=== PATIENT | male | born 1985 | race African-American/Black ===

== ENCOUNTER 2024-04-13 15:53 | Emergency (ER) | payer SELFPAY ==
--- NOTE | ~2024-04-13 | CT_ITS ---
CLINICAL HISTORY: headache, blurry vision CT head without contrast Comparison: None Findings: No acute intracranial hemorrhage. No midline shift or hydrocephalus. Minimal low densities in the lateral aspect of the left frontal lobe are likely due to prominent sulci. No arterial territorial infarction by CT. Imaged paranasal sinuses and imaged mastoid air cells are well aerated. No acute skull fracture. IMPRESSION: 1. No acute intracranial abnormality by CT. This document has been electronically signed by: Ant Craaballo MD on 04/13/2024 18:57:40
[2024-04-13 16:31] VITALS: BP 144/86; PULSE 97; RESP 20; TEMP 36.4; O2SAT 100; BMI 29.9
--- NOTE | 2024-04-13 16:36 | ED_ITS ---
HPI - General Adult General Chief complaint: General Medical Stated complaint: high bp Time Seen by Provider: 04/13/24 21:24 Source: patient Mode of arrival: ambulatory Limitations: no limitations History of Present Illness ED Provider: HPI narrative: Patient with a history of hypertension does have chronic headaches with light sensitivity mostly on the left side came from [place] likely has history of migraine not taking any medication comes here for similar reasons patient's blood pressure been stable on arrival was 144/86 slight nausea no vomiting no chest pain no shortness a breath Related Data Previous Rx's ?Medication ?Instructions ?Recorded amlodipine 10 mg tablet 10 mg PO DAILY #90 tabs 04/13/24 fshikvcpai-dxurnbimesrzs-ffbiqfsg 1 tab PO Q6H PRN haeadace #20 tabs 04/13/24 50 mg-325 mg-40 mg tablet Allergies Allergy/AdvReac Type Severity Reaction Status Date / Time ciprofloxacin [From Cipro] Allergy Unknown Verified 04/13/24 16:36 morphine Allergy Anaphylaxis Verified 04/13/24 16:50 Sulfa (Sulfonamide Allergy Unknown Verified 04/13/24 16:36 Antibiotics) Review of Systems 2 Review of Systems: Yes all other systems are reviewed and are negative [facility], [facility] Social History Social History Smoked in Last 30 Days: No Use of substances other than those prescribed or required for medical reasons: No Advance Directives: No Advance Directives Information Provided: No Do you have a plan to hurt others: No Plan Physical Exam ED Vital Signs: Vital Signs - 24 hr 04/13/24 20:53 04/13/24 22:08 Temperature 97.9 F 97.9 F Pulse Rate 75 75 Respiratory Rate 16 16 Blood Pressure 127/86 127/86 Pulse Oximetry 99 99 Oxygen Delivery Method Room Air Room Air BMI result Body Mass Index 29.9 Appearance: Alert. Oriented X3. No acute distress. Eyes: no pallor or icterus ENT: Pharynx normal. Oral Mucosa moist no temporal artery tenderness Neck: Normal inspection. Neck supple. CVS: Normal heart rate and rhythm. Pulses normal. Respiratory: No respiratory distress. Equal air entry bilateral, no wheezing/rales/rhonchi Abd: soft, not tender Skin: Skin warm and dry. Normal skin color. Normal skin turgor. Extremities: No lower extremity edema, no calf tenderness Neuro: Oriented X 3. Course Course Course Narrative: RME: 38 yold male with newly diagnosed HTN presents to the ED for HTN, heaaches, and blurry visison. patient states no loss of vision, facial droop, slurred speech, paralysis, or any other concerning symptoms. labs, EKG ordered Medications Administered Discontinued Medications Generic Name Dose Route Start Last Admin Trade Name Freq PRN Reason Stop Dose Admin Acetaminophen/Butalbital/Caffeine 1 tab 04/13/24 21:57 04/13/24 22:01 Butalb/Acetamin/Caff 50/325/40 Tablet PO 04/13/24 21:58 1 tab ONCE ONE Administration Medical Decision Making Medical Decision Making [facility] Narrative: Patient clinically with migraine headache will give a Fioricet advised to continue her amlodipine labs are stable Lab Data [facility] Lab Attestation statement: I reviewed the patient's lab results. 04/13/24 17:00 04/13/24 17:00 Labs: Lab Results 04/13/24 Range/Units 17:00 WBC 8.1 (4.8-10.8) X10*3/uL RBC 5.82 H (4.60-5.80) X10*6/uL Hgb 14.6 (14.0-18.0) g/dl Hct 40.0 L (42.0-52.0) % MCV 68.7 L (80.0-98.0) fL MCH 25.1 L (27.0-33.0) pg MCHC 36.5 H (31.0-36.0) g/dl RDW 22.5 H (11.0-16.0) % Plt Count 135 L (160-400) X10*3/uL MPV Not Reportable Immature Gran % (Auto) 0.9 H (0.0-0.4) % Neut % (Auto) 43.8 L (45-73) % Lymph % (Auto) 42.0 H (20-40) % [place] % (Auto) 10.1 (2-11) % Eos % (Auto) 2.5 (0-4) % Baso % (Auto) 0.7 (0-2) % Lymph # (Auto) 3.4 (1.2-4.9) X10*3/uL [place] # (Auto) 0.8 (0.1-1.2) X10*3/uL Eos # (Auto) 0.2 (0.0-0.4) X10*3/uL Baso # (Auto) 0.1 (0.0-0.2) X10*3/uL Abs Immat Gran (auto) 0.07 H (0.00-0.03) X10*3/uL Absolute Neuts (auto) 3.5 (2.0-8.3) x10*3/uL Absolute Nucleated RBC 0.020 H (0.0-0.012) X10*3/uL Nucleated RBC % (auto) 0.2 (0.0-0.2) /100WBC Sodium 139 (135-145) mmol/L Potassium 4.1 (3.3-5.1) mmol/L Chloride 106 (96-108) mmol/L Carbon Dioxide 23 (22-29) mmol/L Anion Gap 14 (12-20) BUN 8 L (9-16) mg/dL Creatinine 0.92 (0.5-1.4) mg/dL Estim Creat Clear Calc 112.1 Estimated GFR > 60 Random Glucose 142 H (60-115) mg/dL Calcium 9.3 (8.4-10.2) mg/dL Total Bilirubin 2.0 H (0.0-1.0) mg/dL AST 39 H (5-37) U/L ALT 57 H (0-40) U/L Alkaline Phosphatase 62 (39-117) U/L Troponin I High Sens < 2.7 (<3.5-35.0) ng/L Total Protein 8.7 H (6.5-8.0) g/dL Albumin 4.4 (3.5-5.0) g/dL Independent Interpretation I performed an independent interpretation of an: EKG Interpretation: Normal sinus rhythm heart rate 89 beats per minute normal interval normal axis no acute STT wave changes no acute ischemia Discharge Plan Discharge Clinical Impression: Headache, migraine Patient Disposition: Home, Self-Care Instructions: Migraine Headache (ED) Additional Instructions: Take medication for headache as prescribed Continue take your blood pressure medication Follow up with your PCP Prescriptions: New lfwfyilkue-scxzjysknydtz-zxnu 50-325-40 mg tablet 1 tab PO Q6H PRN (Reason: haeadace) Qty: 20 0RF amlodipine 10 mg tablet 10 mg PO DAILY Qty: 90 0RF Interventions: ED Discharge Assessment Last Done: 04/13/24 22:08 Discharge Date/Time: 04/13/24 22:10 Print Language: Swedish
--- NOTE | 2024-04-13 16:40 | ECG_ITS ---
Test Reason : htn/headache Blood Pressure : */* mmHG Vent. Rate : 89 BPM Atrial Rate : 89 BPM P-R Int : 174 ms QRS Dur : 82 ms QT Int : 360 ms P-R-T Axes : 43 0 28 degrees QTcB Int : 438 ms Normal sinus rhythm Normal ECG No previous ECGs available Referred By: Dylan Hou Electronically Signed By: YUNIOR STARR
[2024-04-13 17:05] LABS: MANUAL DIFF FLAG NO
[2024-04-13 17:07] LABS: Basophils Absolute Auto 0.1 X10*3/uL (0.0-0.2); Basophils Percent Auto 0.7 % (0-2); Eosinophils Percent Auto 2.5 % (0-4); Red Cell Distribution Width 22.5 % (11.0-16.0); SCAN SMEAR FLAG 1
[2024-04-13 17:08] LABS: Eosinophils Absolute Auto 0.2 X10*3/uL (0.0-0.4); Hemoglobin 14.6 g/dl (14.0-18.0); Imm Gran Abs Auto 0.07 X10*3/uL (0.00-0.03); Imm Gran Pct Auto 0.9 % (0.0-0.4); Lymphocytes Absolute Auto 3.4 X10*3/uL (1.2-4.9); Mean Corpuscular HGB Conc 36.5 g/dl (31.0-36.0); Mean Corpuscular Hemoglobin 25.1 pg (27.0-33.0); Mean Corpuscular Volume 68.7 fL (80.0-98.0); Monocytes Absolute Auto 0.8 X10*3/uL (0.1-1.2); Monocytes Percent Auto 10.1 % (2-11); NRBC Pct Auto 0.2 /100WBC (0.0-0.2); Neutrophils Absolute Auto 3.5 x10*3/uL (2.0-8.3); Neutrophils Percent Auto 43.8 % (45-73); Platelet Count 135 X10*3/uL (160-400); Red Blood Count 5.82 X10*6/uL (4.60-5.80); White Blood Count 8.1 X10*3/uL (4.8-10.8)
[2024-04-13 17:23] LABS: Alanine Aminotransferase 57 U/L (0-40); Albumin Level 4.4 g/dL (3.5-5.0); Alkaline Phosphatase 62 U/L (39-117); Anion Gap 14 (12-20); Aspartate Amino Transferase 39 U/L (5-37); Blood Urea Nitrogen 8 mg/dL (9-16); Calcium 9.3 mg/dL (8.4-10.2); Carbon Dioxide 23 mmol/L (22-29); Chloride 106 mmol/L (96-108); Creatinine Clr Calc Pharmacy 112.1; Estimated Glomerular Filt Rate > 60; Glucose Random 142 mg/dL (60-115); Potassium 4.1 mmol/L (3.3-5.1); Sodium 139 mmol/L (135-145); Total Protein 8.7 g/dL (6.5-8.0)
[2024-04-13 17:29] LABS: PLT ABN DIST 1
[2024-04-13 17:37] LABS: Troponin-I High Sensitivity < 2.7 ng/L (<3.5-35.0)
[2024-04-13 20:53] VITALS: BP 127/86; PULSE 75; RESP 16; TEMP 36.6; O2SAT 99
[2024-04-13] MEDS: Butalb/Acetamin/Caff 50/325/40 TABLET 1 TAB PO (22:01)
[2024-04-13 22:08] VITALS: BP 127/86; PULSE 75; RESP 16; TEMP 36.6; O2SAT 99
== END 2024-04-13 22:10 | disposition home or self-care (01) ==
PROVIDERS: Physician Assistant; Emergency Provider Internal Medicine
DX: G43.909 Migraine, unspecified, not intractable, without status migrainosus (principal); I10 Essential (primary) hypertension; H53.8 Other visual disturbances; Z79.899 Other long term (current) drug therapy
CPT/HCPCS: 36415; 70450; 80053; 84484; 85025; 93005; 99284

== ENCOUNTER → 2024-04-13 16:40 | Outpatient (BNV) | payer SELFPAY | PROVIDERS: Emergency Provider Internal Medicine; Visit Provider Internal Medicine | DX: I10 Essential (primary) hypertension (principal); R51.9 Headache, unspecified | CPT/HCPCS: 93010 ==

== ENCOUNTER → 2024-04-13 16:42 | Outpatient (BNV) | payer SELFPAY | PROVIDERS: Visit Provider Radiology Neuroradiology | DX: H53.8 Other visual disturbances (principal); R51.9 Headache, unspecified | CPT/HCPCS: 70450 ==